=== PATIENT | male | born 2000 | race Caucasian/White ===

== ENCOUNTER 2022-06-22 16:41 | Emergency (ER) | payer OTHER ==
[~2022-06-22] VITALS: Ht 167.6 cm; Wt 52.2 kg
[2022-06-22 16:45] VITALS: BP 128/80
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
--- NOTE | 2022-06-22 19:29 | NUR ---
Patiet lying in bed, A/Ox4, chest rise and fall symmetrical, no c/o pain or s/s of distress.
[2022-06-22] MEDS ORDERED: IBUP-2213 PO (19:32)
[2022-06-22] MEDS ORDERED: ACET-8905 PO (19:32)
[2022-06-22 19:44] VITALS: BP 122/75
== END 2022-06-22 19:45 | disposition home or self-care (01) ==
LOC: MED 16:41
DX: M25.531 Pain in right wrist (principal); M25.532 Pain in left wrist; V89.2XXA Person injured in unspecified motor-vehicle accident, traffic, initial encounter; Y93.89 Activity, other specified; Y92.410 Unspecified street and highway as the place of occurrence of the external cause; Y99.8 Other external cause status
CPT/HCPCS: 73110; 99283